=== PATIENT | male | born 1940 | race Caucasian/White ===

== ENCOUNTER 2018-05-27 23:30 | Emergency (ER) | payer MEDICARE ==
[~2018-05-27 23:30] MED LIST: ADV100/50 INH; ADV250/50 INH; ALB17R INH; ALB6.7R INH; GABA-1 PO; LEV75 PO; LOR75 PO; MET800 PO; MON10 PO; MULT-820 PO; OXY10 PO; PER PO; ROPI0.2527 PO; WARF3TAB36 PO; ZOLP-350 PO; [UNRECOGNIZED DRUG - CODE] PO
--- NOTE | 2018-05-27 23:39 | ER Report ---
History and Physical Time Seen By MD: 23:39 HPI/ROS CHIEF COMPLAINT: Anxiety, shortness of breath HISTORY OF PRESENT ILLNESS: Patient is a 78-year-old male here with complaints of shortness of breath while on his CPAP this evening. He came into town as stated in the hotel with his because he has an orthopedic appointment for his right knee with Dr. Liriano 05/28 however he forgot his oxygen causing him to wake up in the middle the night short of breath and in a panic. Patient symptoms have resolved since that time and no longer feels short of breath on room air. He does have a history significant for cardiac disease however is not having chest pain or chest tightness currently. He also has a history of pulmonary embolisms however reports that his symptoms are different today and blames his lack of oxygen for his prior symptoms. Patient is afebrile at time of evaluation, denies shortness breath, chest pain, he is hemodynamically stable. REVIEW OF SYSTEMS: Constitutional: No fever, no chills. Eyes: No discharge. ENT: No sore throat. Cardiovascular: No chest pain, no palpitations. Respiratory: No cough, no shortness of breath currently Gastrointestinal: No abdominal pain, no vomiting. Genitourinary: No hematuria. Musculoskeletal: + Right knee pain and mild edema without erythema Skin: No rashes. Neurological: No headache. Allergies: Coded Allergies: No Known Drug Allergies (Unverified , 05/27/18) Uncoded Allergies: ANIMALS AND PLANTS (Allergy, Mild, SOB, 12/06/07) UNKNOWN FOODS (Allergy, Mild, SOB, 12/06/07) Home Meds Active Scripts Lorazepam (ATIVAN) 1 Mg Tablet, 1 MG PO Q4-6H for 3 Days, #12 Prov:JONAH LAKE DO 05/28/18 Reported Medications Allopurinol (ZYLOPRIM) 300 Mg Tablet, 300 MG PO QDAY, TAB 05/28/18 Gabapentin (GABAPENTIN) 300 Mg Capsule, 300 MG PO TID, CAPSULE 05/28/18 Nitroglycerin (NITROGLYCERIN) 0.4 Mg Tab.subl, 0.4 MG SL Q5MIN Y for CHEST PAIN 05/28/18 Furosemide (FUROSEMIDE) 40 Mg Tablet, 1 TAB PO PRN, TAB 05/28/18 Metoprolol Succinate (METOPROLOL SUCCINATE) 25 Mg Tab.er.24h, 0.5 TAB PO BID, TAB 05/28/18 Fexofenadine Hcl/Pseudoephedr (ROSIBEL-D 24 HOUR TABLET) 1 Each Tabsr, 1 TAB PO QDAY 05/28/18 Prednisone 10 Mg Tab (PREDNISONE 10 MG TAB) 10 Mg Tablet, 0.5 TAB PO QDAY, TAB 05/28/18 Folic Acid (FOLIC ACID) 1 Mg Tablet, 1 MG PO QDAY, TAB 05/28/18 Methotrexate Sodium (METHOTREXATE) 25 Mg/1 Ml Vial, 6 ML IJ 1XWK, VIAL 05/28/18 Diphenhydramine Hcl (BENADRYL) 25 Mg Capsule, 25 MG PO Q6-8H Y for it, CAPSULE 05/28/18 Trazodone Hcl (TRAZODONE HCL) 50 Mg Tablet, 50-100 MG PO QHS 05/28/18 Ropinirole Hcl (ROPINIROLE HCL) 2 Mg Tablet, 4 MG PO QDAY 05/28/18 Warfarin Sodium (WARFARIN SODIUM) 5 Mg Tablet, 4 MG PO sat,sun, TAB 05/28/18 Warfarin Sodium (WARFARIN SODIUM) 5 Mg Tablet, 2 MG PO m,,w,th,f, TAB 05/28/18 Pantoprazole Sodium (PANTOPRAZOLE SODIUM) 40 Mg Tablet.dr, 40 MG PO QDAY, TAB.SR 05/28/18 Albuterol Sulfate (Proventil Hfa) 6.7 Gm Aer.w.adap, 1 - 2 PUFF INH, 0 Refills 04/06/09 Levothyroxine Sodium (Synthroid/Levothroid) 0.075 Mg Tab, 0.075 MG PO QDAY, 0 Refills 04/06/09 Discontinued Reported Medications Oxycodone/Acetaminophen (OXYCODONE/ACETAMINOPHEN 5MG/325 MG) 5 Mg/325 Mg Tab, 1 - 2 TAB PO Q6H Y, #60 0 Refills TAKE 1-2 TABS EVERY 6 HOURS NEEDED FOR PAIN 04/10/09 Multivitamins (Multivitamin) 1 Tab Tablet, 1 TAB PO, 0 Refills 04/06/09 Acetaminophen/Hydrocodone (Lortab 7.5/500) 7.5 Mg/500 Mg Tab, 1 - 2 TAB PO Q6H, 0 Refills 04/06/09 Ropinirole Hcl (Requip) 0.25 Mg Tablet, 0.25 MG PO QDAY, 0 Refills 04/06/09 Gabapentin (Neurontin) 600 Mg Tablet, 600 MG PO TID, 0 Refills 04/06/09 Salmeterol Xinaf/Fluticasone (Advair 250/50 Diskus) 250 Mcg/50 Mcg Inh, 1 PUFF INH QDAY, 0 Refills 1 PUFF 04/06/09 Montelukast Sodium (Singulair) 10 Mg Tab, 10 MG PO QHS 04/06/09 Hx Smoking: Yes (PAST FOR 4 YEARS) Constitutional Vital Sign - Last 24 Hours 05/27/18 23:41 Temp 98.6 Pulse 72 Resp 16 B/P (MAP) 164/89 Pulse Ox 93 O2 Delivery Room Air Physical Exam General Appearance: The patient is alert, has no immediate need for airway protection and no signs of toxicity. No Acute distress Eyes: Pupils equal and round no pallor or injection. ENT, Mouth: Mucous membranes are moist. Respiratory: There are no retractions, lungs are clear to auscultation. Cardiovascular: Regular rate and rhythm. Gastrointestinal: Abdomen is soft and non tender, no masses, bowel sounds normal. Neurological: No focal neurological deficits Skin: Warm and dry, no rashes. Musculoskeletal: Neck is supple non tender. Right knee swelling with edema and tenderness on ROM DIFFERENTIAL DIAGNOSIS: After history and physical exam differential diagnosis was considered for infection, gout, arthritis, lack of supplemental oxygen, panic attack Medical Decision Making Data Points Result Diagram: 05/28/18 0100 05/28/18 0100 Laboratory Hematology Test 05/28/18 01:00 Red Blood Count 5.08 M/uL (4.00-5.60) Mean Corpuscular Volume 98.4 fL (80.0-96.0) Mean Corpuscular Hemoglobin 33.7 pg (26.0-33.0) Mean Corpuscular Hemoglobin Concent 34.2 g/dL (32.0-36.0) Red Cell Distribution Width 15.7 % (11.5-14.5) Mean Platelet Volume 9.1 fL (7.2-11.1) Neutrophils (%) (Auto) 66.4 % (39.4-72.5) Lymphocytes (%) (Auto) 22.3 % (17.6-49.6) Monocytes (%) (Auto) 8.8 % (4.1-12.4) Eosinophils (%) (Auto) 2.1 % (0.4-6.7) Basophils (%) (Auto) 0.4 % (0.3-1.4) Nucleated RBC Relative Count (auto) 0.0 /100WBC Neutrophils # (Auto) 5.4 K/uL (2.0-7.4) Lymphocytes # (Auto) 1.8 K/uL (1.3-3.6) Monocytes # (Auto) 0.7 K/uL (0.3-1.0) Eosinophils # (Auto) 0.2 K/uL (0.0-0.5) Basophils # (Auto) 0.0 K/uL (0.0-0.1) Nucleated RBC Absolute Count (auto) 0.00 K/uL Blood Gas Patient Temperature 98.3 DEGREES Venous Blood pH 7.50 (7.31-7.41) Venous Blood Partial Pressure CO2 30 mmHg Venous Blood Partial Pressure O2 51 mmHg Venous Blood HCO3 24 mmol/L Venous Blood Oxygen Saturation 89 % Venous Blood Base Excess 1 mmol/L Oxygen Liters/Minute Room air Sodium Level 137 mmol/L (137-145) Potassium Level 4.0 mmol/L (3.5-5.0) Chloride Level 102 mmol/L (98-107) Carbon Dioxide Level 27 mmol/L (22-30) Blood Urea Nitrogen 12 mg/dl (9-21) Creatinine 0.80 mg/dl (0.66-1.25) Glomerular Filtration Rate Calc > 60.0 Random Glucose 110 mg/dl (75-110) Calcium Level 9.0 mg/dl (8.4-10.2) Total Bilirubin 0.5 mg/dl (0.2-1.3) Aspartate Amino Transf (AST/SGOT) 31 U/L (0-35) Alanine Aminotransferase (ALT/SGPT) 36 U/L (0-56) Alkaline Phosphatase 58 U/L (0-126) Total Protein 6.1 g/dl (6.3-8.2) Albumin 3.5 g/dl (3.5-5.0) Chemistry Test 05/28/18 01:00 White Blood Count 8.2 k/uL (4.5-11.0) Red Blood Count 5.08 M/uL (4.00-5.60) Hemoglobin 17.1 g/dL (14.0-18.0) Hematocrit 50.0 % (42.0-52.0) Mean Corpuscular Volume 98.4 fL (80.0-96.0) Mean Corpuscular Hemoglobin 33.7 pg (26.0-33.0) Mean Corpuscular Hemoglobin Concent 34.2 g/dL (32.0-36.0) Red Cell Distribution Width 15.7 % (11.5-14.5) Platelet Count 146 K/uL (150-450) Mean Platelet Volume 9.1 fL (7.2-11.1) Neutrophils (%) (Auto) 66.4 % (39.4-72.5) Lymphocytes (%) (Auto) 22.3 % (17.6-49.6) Monocytes (%) (Auto) 8.8 % (4.1-12.4) Eosinophils (%) (Auto) 2.1 % (0.4-6.7) Basophils (%) (Auto) 0.4 % (0.3-1.4) Nucleated RBC Relative Count (auto) 0.0 /100WBC Neutrophils # (Auto) 5.4 K/uL (2.0-7.4) Lymphocytes # (Auto) 1.8 K/uL (1.3-3.6) Monocytes # (Auto) 0.7 K/uL (0.3-1.0) Eosinophils # (Auto) 0.2 K/uL (0.0-0.5) Basophils # (Auto) 0.0 K/uL (0.0-0.1) Nucleated RBC Absolute Count (auto) 0.00 K/uL Blood Gas Patient Temperature 98.3 DEGREES Venous Blood pH 7.50 (7.31-7.41) Venous Blood Partial Pressure CO2 30 mmHg Venous Blood Partial Pressure O2 51 mmHg Venous Blood HCO3 24 mmol/L Venous Blood Oxygen Saturation 89 % Venous Blood Base Excess 1 mmol/L Oxygen Liters/Minute Room air Glomerular Filtration Rate Calc > 60.0 Calcium Level 9.0 mg/dl (8.4-10.2) Total Bilirubin 0.5 mg/dl (0.2-1.3) Aspartate Amino Transf (AST/SGOT) 31 U/L (0-35) Alanine Aminotransferase (ALT/SGPT) 36 U/L (0-56) Alkaline Phosphatase 58 U/L (0-126) Total Protein 6.1 g/dl (6.3-8.2) Albumin 3.5 g/dl (3.5-5.0) EKG/Imaging EKG Interpretation 12 lead EKG: Normal sinus rhythm, rate 63, right bundle branch block, QTC 499 Rhythm: normal sinus rhythm with right bundle branch block [place]: normal QRS: normal ST segments: normal Monitor Interpretation: Normal Sinus Rhythm Imaging CHEST: Indication: Dyspnea. Technique: Frontal and lateral views were obtained. Comparison: 01/03/2011 Skeletal and soft tissue structures: There is evidence of prior cervical spine fusion. There are mild degenerative changes throughout the thoracic spine. No acute skeletal deformity is identified. Heart and mediastinum: Within normal limits. Lung dickinson: Well-expanded. There are diffuse prominent interstitial markings. No segmental infiltrate or consolidation is identified. Pleural spaces: Unremarkable. Impression: No acute process or significant change. ED Course/Re-evaluation ED Course Patient is a 78-year-old male here with complaints of anxiety after waking up on his CPAP without supplemental oxygen. Symptoms have since resolved. Patient is staying in a hotel tonight so he can attend an orthopedic appointment tomorrow for his right knee. Chest x-ray showed no acute findings. Labs were unremarkable. Patient was advised to follow up with PCP in the next several days and to use his oxygen with CPAP for nocturnal use. EKG showed normal sinus rhythm with right bundle branch block, no old studies were available for comparison. Patient voiced understanding regarding plan. Decision to Disposition Date: May 28, 2018 Decision to Disposition Time: 01:41 Depart Departure Latest Vital Signs Vital Signs Date Time Temp Pulse Resp B/P (MAP) Pulse Ox O2 Delivery O2 Flow Rate FiO2 05/27/18 23:41 98.6 72 16 164/89 93 Room Air Impression: Primary Impression: Shortness of breath Additional Impression: Anxiety Condition: Improved Disposition: HOME OR SELF-CARE New Scripts Lorazepam (ATIVAN) 1 Mg Tablet 1 MG PO Q4-6H for 3 Days, #12 Prov: JONAH LAKE DO 05/28/18 Patient Instructions: Dyspnea (ED), Lorazepam (By mouth) Additional Instructions: You may take 1 tablet of Ativan as needed for anxiety every 6-8 hours. Please keep your scheduled appointment with orthopedics. Please return promptly should develop any shortness of breath, difficulty breathing, fevers, chest pain, skin discoloration. Problem Qualifiers JONAH LAKE DO May 27, 2018 23:39
[2018-05-28] MEDS ORDERED: ALLO-119 PO (00:08)
[2018-05-28] MEDS ORDERED: FURO-47 PO (00:08)
[2018-05-28] MEDS ORDERED: PRED-1 PO (00:08)
[2018-05-28] MEDS ORDERED: GABA-549 PO (00:08)
[2018-05-28] MEDS ORDERED: PANT40TA65 PO (00:08)
[2018-05-28] MEDS ORDERED: FOLI-68 PO (00:08)
[2018-05-28] MEDS ORDERED: TRAZ-156 PO (00:08)
[2018-05-28] MEDS ORDERED: WARF5TAB23 PO ×2 (00:08)
[2018-05-28] MEDS ORDERED: DIPH-740 PO (00:08)
[2018-05-28] MEDS ORDERED: METO25TA23 PO (00:08)
[2018-05-28] MEDS ORDERED: FEXO1TAB63 PO (00:08)
[2018-05-28] MEDS ORDERED: NITR0.4T3 SL (00:08)
[2018-05-28] MEDS ORDERED: METH25VI31 IJ (00:08)
[2018-05-28] MEDS ORDERED: ROPI2TAB28 PO (00:08)
--- NOTE | 2018-05-28 00:58 | EKG ---
FACILITY: [facility] PATIENT NAME: SYLVIA NIXON : [id number] MR: [id number] V: [id number] EXAM DATE: ORDERING PHYSICIAN: JONAH LAKE TECHNOLOGIST: Test Reason : Blood Pressure : / mmHG Vent. Rate : 063 BPM Atrial Rate : 063 BPM P-R Int : 168 ms QRS Dur : 136 ms QT Int : 488 ms P-R-T Axes : 024 029 -09 degrees QTc Int : 499 ms Normal sinus rhythm Right bundle branch block T wave abnormality, consider inferior ischemia Abnormal ECG No previous ECGs available Confirmed by TIFFANY TONEY ([id number]) on 05/28/2018 10:19:25 AM Referred By: Confirmed By:TIFFANY TONEY
[2018-05-28 01:05] LABS: PLATELET COUNT, AUTOMATED 146 K/uL (150-450)
[2018-05-28] MEDS ORDERED: LORA-1456 PO (01:43)
--- NOTE | 2018-05-28 02:07 | RADIOLOGY IMAGING REPORT ---
FACILITY: [facility] PATIENT NAME: Eliecer Oliva : 1940 MR: [id number] V: [id number] EXAM DATE: ORDERING PHYSICIAN: JONAH LAKE TECHNOLOGIST: [place] [facility] [place] : 1940 Visit/Account:[id number] Date of Sevice: 05/28/2018 CHEST: Indication: Dyspnea. Technique: Frontal and lateral views were obtained. Comparison: 01/03/2011 Skeletal and soft tissue structures: There is evidence of prior cervical spine fusion. There are mild degenerative changes throughout the thoracic spine. No acute skeletal deformity is identified. Heart and mediastinum: Within normal limits. Lung dickinson: Well-expanded. There are diffuse prominent interstitial markings. No segmental infiltrat e or consolidation is identified. Pleural spaces: Unremarkable. Impression: No acute process or significant change. Report Dictated By: Eulogio Loza MD at 05/28/2018 2:01 AM Report E-Signed By: Eulogio Loza MD at 05/28/2018 2:04 AM WSN:[id number]
[2018-05-28 02:30] VITALS: BP 118/71
== END 2018-05-28 02:41 | disposition home or self-care (01) ==
LOC: ER 23:55
DX: F41.9 Anxiety disorder, unspecified (principal); R06.02 Shortness of breath
CPT/HCPCS: 71046; 82040; 82247; 82310; 82374; 82435; 82565; 82803; 82947; 84075; 84132; 84155; 84295; 84450; 84460; 84520; 85025; 93005; 99284

== ENCOUNTER → 2018-05-28 | Outpatient (CLI) | payer MEDICARE ==
[~2018-05-28] MED LIST changes: +ALLO-119 PO; +DIPH-740 PO; +FEXO1TAB63 PO; +FOLI-68 PO; +FURO-47 PO; +GABA-549 PO; +LORA-1456 PO; +METH25VI31 IJ; +METO25TA23 PO; +NITR0.4T3 SL; +PANT40TA65 PO; +PRED-1 PO; +ROPI2TAB28 PO; +TRAZ-156 PO; +WARF5TAB23 PO
--- NOTE | 2018-05-28 16:16 | RADIOLOGY IMAGING REPORT ---
FACILITY: [facility] - [place] PATIENT NAME: Eliecer Oliva : 1940 MR: [id number] V: [id number] EXAM DATE: ORDERING PHYSICIAN: DARRYL VILCHIS TECHNOLOGIST: Location: [facility] Patient: Eliecer Oliva : 1940 Visit/Account:[id number] Date of Sevice: 05/28/2018 VENOUS DOPP LOW RIGHT EXTREMIT Indication: Right leg pain and swelling. Comparison: August 04, 2016 right leg ultrasound. Procedure: There has been satisfactory grayscale as well as color flow and Doppler waveform analysis of the deep vessels of the right lower extremity. Findings: The common femoral, profunda femoral, superficial femoral, popliteal and infrapopliteal ves sels so far as visualized are compressible with grayscale imaging. All these vessels show flow with c olor Doppler imaging. Following calf compression there is normal directional augmentation of the Dopp ler waveform. The right greater saphenous vein is compressible with grayscale imaging and color flow analysis shows normal flow. The Doppler waveform shows normal direction of flow. IMPRESSION: No findings of deep vein thrombosis in the right lower extremity. Report Dictated By: Gomez Cornell MD at 05/28/2018 4:12 PM Report E-Signed By: Gomez Cornell MD at 05/28/2018 4:13 PM WSN:[id number]
== END ==
LOC: US 14:54
PROVIDERS: ATTEND Orthopaedic Surgery
DX: M79.89 Other specified soft tissue disorders (principal); Z86.711 Personal history of pulmonary embolism

== ENCOUNTER 2018-11-09 01:29 | Inpatient (IN) | payer MEDICARE ==
--- NOTE | 2018-11-08 12:18 | LEVENE H&P ---
DATE OF ADMISSION: November 09, 2018 IDENTIFICATION/CHIEF COMPLAINT Eliecer is a 78-year-old gentleman with chief complaint of right shoulder pain. HISTORY OF PRESENT ILLNESS Patient has had a longstanding history of rotator cuff tear in his shoulder which has been managed conservatively. This has gone on to become progressively painful and debilitating to the point he is unable to effectively elevate the arm. MRI indicates a massive, probably irreparable and atrophied tear of his cuff. Surgery is indicated to relieve symptoms after failure of nonoperative measures. PAST MEDICAL HISTORY 1. History of coronary artery disease. 2. History of [place]. 3. History of right bundle branch block. 4. Hypertension. 5. Previous cardiac stent placement. 6. Sleep apnea, managed with CPAP. 7. Reactive airway disease. 8. Nighttime oxygen use. PAST SURGICAL HISTORY 1. Tonsillectomy. 2. Knee surgery on multiple occasions. 3. Left knee replacement. 4. Cervical fusion, four levels. ALLERGIES No known drug allergies. LATEX allergy. CURRENT MEDICATIONS 1. Elavil 75 mg p.o. at bedtime. 2. Fosamax 75 mg p.o. every week. 3. Ventolin inhaler as needed. 4. Pantoprazole 40 mg p.o. every day. 5. Levothyroxine 75 micrograms p.o. every day. 6. Coumadin 2 mg five days a week, 4 mg two times a week. 7. Ropinirole 2 mg p.o. at bedtime. 8. Methotrexate injection 6 mg once a week. 9. Prednisone 5 mg p.o. every day. 10. Metoprolol 25 mg one-half tablet every day. 11. Aspirin 81 mg p.o. every day. 12. Allopurinol 300 mg p.o. every day. 13. Gabapentin 300 mg p.o. every day. 14. Xyzal one tablet p.o. every day. FAMILY HISTORY Notable for sister with breast cancer and a grandmother with stroke. SOCIAL HISTORY Negative for smoking tobacco until 1962; he has quit since. He denies alcohol or drug abuse. REVIEW OF SYSTEMS Notable for pulmonary embolus, thyroid disease, acid reflux disease, polymyositis. PHYSICAL EXAMINATION GENERAL: This is a well-developed, well-nourished male who appears stated age. HEENT: Normocephalic, atraumatic. NECK: Supple. LUNGS: Clear. HEART: Regular. ABDOMEN: Soft. ORTHOPEDIC EXAMINATION Eliecer has no meaningful active elevation of his shoulder. He has positive external rotation lag. He is weak in forward elevation, abduction, adduction, external rotation, internal rotation. Power is reasonable. He is tender at the anterior and posterior joint line over the biceps groove and greater tuberosity. 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 PLAN Per patient's request, we will proceed with surgical intervention. This will consist of reverse total shoulder arthroplasty, concomitant long-head biceps tenodesis. The nature of the procedure, the risks, benefits, the anticipated rehabilitative course were reviewed. Risks include, but are not limited to, , major medical or anesthetic complication, infection, neurovascular injury, blood transfusion, stiffness, scarring, fracture, tendon rupture, instability, implant loosening, migration or failure, persistent or recurrent pain or symptoms, need for additional surgery and other unforeseen. He understands and wishes to proceed. A signed permit is placed in the chart. No guarantees are given or implied. OCTAVIO
[2018-11-08 15:25] LABS: INR 1.05
[~2018-11-09] VITALS: Ht 170.2 cm; Wt 97.1 kg
[~2018-11-09 01:29] MED LIST changes: +ASPI81TA94 PO; -TRAZ-156 PO; +TRAZ50TA34 PO
[2018-11-09] MEDS ORDERED: LEVO5TAB28 PO (11:37)
[2018-11-09 12:41] VITALS: BP 151/88
[2018-11-09] MEDS ORDERED: MIDAZOLAM 2 MG/2 ML VIAL IVP PRN (12:45)
[2018-11-09] MEDS ORDERED: LIDOCAINE/SOD BICARB 8.4% SYR ID ONE (12:45)
[2018-11-09] MEDS ORDERED: HYDROCORTISONE 100 MG/2 ML IVP ONE (12:45)
[2018-11-09] MEDS ORDERED: NORMOSOL R SOLN(*) 1000 ML BAG 1,000 ML IV PRN ×2 (12:45→18:30)
[2018-11-09] MEDS ORDERED: ACETAMINOPHEN 500 MG TAB PO ONE (12:45)
[2018-11-09] MEDS ORDERED: PREGABALIN 75 MG CAPSULE PO ONE (12:45)
[2018-11-09] MEDS ORDERED: ceFAZolin(*) 2GM/D5W 50ML 50 ML IVPB ONE (12:45)
[2018-11-09] MEDS ORDERED: CELECOXIB 200 MG CAP PO ONE (12:45)
[2018-11-09] MEDS ORDERED: TRANEXAMIC AC 1000 MG/10ML SDV 1,000 MG in DEXTROSE 5% 50 ML BAG 50 ML IV ONE ×2 (13:00→14:00)
[2018-11-09] MEDS ORDERED: ROPIVACAINE/EPI/CLONIDINE/KET 50 ML SYRINGE INJ ONE ×2 (13:00→14:00)
[2018-11-09] MEDS ORDERED: KETAMINE HCL 200 MG/20 ML MDV ONE (13:58)
[2018-11-09] MEDS ORDERED: fentaNYL CITR 100 MCG/2 ML AMP ONE (13:58)
[2018-11-09] MEDS ORDERED: ONDANSETRON 4 MG/2 ML VIAL ONE (13:59)
[2018-11-09] MEDS ORDERED: DEXAMETHASONE SOD PHOS 10MG/ML ONE (13:59)
[2018-11-09] MEDS ORDERED: PROPOFOL EMUL(*) 10MG/ML 20 ML 20 ML ONE ×2 (13:59→14:00)
[2018-11-09] MEDS ORDERED: LIDOCAINE MPF 1% 5 ML VIAL ONE (13:59)
[2018-11-09] MEDS ORDERED: ROCURONIUM BROM 10 MG/ML 10 ML ONE (14:48)
[2018-11-09] MEDS ORDERED: HYDROGEN PEROXID 3% 473 ML BTL TP ONE (15:43)
[2018-11-09] MEDS ORDERED: LACTATED RINGER 3000 ML BAG IR ONE (16:09)
[2018-11-09] MEDS ORDERED: NS 0.9% IRRIGATION 1000ML PLCT IR ONE (16:09)
[2018-11-09] MEDS ORDERED: SUGAMMADEX SOD 200 MG/2 ML SDV ONE (17:37)
[2018-11-09] MEDS ORDERED: MAGNESIUM HYDROXIDE* 30ML UDCP PO PRN (18:30)
[2018-11-09] MEDS ORDERED: diphenhydrAMINE 25 MG CAP PO PRN (18:30)
[2018-11-09] MEDS ORDERED: BENZOCAINE/MENTHOL 1 EACH LOZG PO PRN (18:30)
[2018-11-09] MEDS ORDERED: FLUSH 10 ML SYR IVP PRN (18:30)
[2018-11-09] MEDS ORDERED: APAP/HYDROCODONE 325/7.5 TAB PO PRN (18:30)
[2018-11-09] MEDS ORDERED: PROMETHAZINE 25 MG/ML 1 ML AMP IVP PRN (18:30)
[2018-11-09] MEDS ORDERED: diphenhydrAMINE 50 MG/ML VIAL IVP PRN (18:30)
[2018-11-09] MEDS ORDERED: ZOLPIDEM TARTRATE 5 MG TAB PO PRN (18:30)
[2018-11-09] MEDS ORDERED: BISACODYL 10 MG SUPP PR PRN (18:30)
[2018-11-09] MEDS ORDERED: ACETAMINOPHEN 325 MG TAB PO PRN (18:30)
[2018-11-09] MEDS ORDERED: DIAZEPAM 5 MG TAB PO PRN (18:30)
[2018-11-09] MEDS ORDERED: NORMOSOL R SOLN(*) 1000 ML BAG 1,000 ML IV ONE (18:37)
[2018-11-09 19:40] VITALS: BP 114/85
[2018-11-09] MEDS ORDERED: WARF2TAB13 PO (19:51)
[2018-11-09] MEDS ORDERED: METOPROLOL SUCC XL 25 MG TABCR PO SCH (21:00)
[2018-11-09] MEDS ORDERED: WARFARIN SOD 2 MG TAB PO ONE (21:00)
[2018-11-09] MEDS ORDERED: ALBUTEROL 2.5 MG/3 ML NEB NEB PRN (21:00)
[2018-11-09] MEDS ORDERED: traZODone HCL 50 MG TAB PO SCH (21:00)
[2018-11-09] MEDS ORDERED: ENOXAPARIN 100 MG/ML SYR SC SCH (21:00)
--- NOTE | 2018-11-09 21:11 | RADIOLOGY IMAGING REPORT ---
FACILITY: [facility] - [place] PATIENT NAME: Eliecer Oliva : 1940 MR: [id number] V: [id number] EXAM DATE: ORDERING PHYSICIAN: DARRYL VILCHIS TECHNOLOGIST: Location: [facility] - [place] Patient: Eliecer Oliva : 1940 Visit/Account:[id number] Date of Sevice: 11/09/2018 SHOULDER 1 VIEW RIGHT HISTORY: Postop RIGHT reversed total shoulder arthroplasty COMPARISON: None. FINDINGS: AP view of the right shoulder demonstrates a prosthesis of the glenoid and proximal humerus in good a lignment. No periprosthetic lucency or fracture is seen. The acromioclavicular joint is unremarkable. IMPRESSION: Satisfactory postoperative appearance of the right glenohumeral prosthesis. Report Dictated By: Chica Richey MD at 11/09/2018 9:06 PM Report E-Signed By: Chica Richey MD at 11/09/2018 9:07 PM WSN:[id number]
--- NOTE | 2018-11-09 21:48 | OPERATIVE REPORT 1 ---
EVENT DATE: November 09, 2018 SURGEON: Kanu Mohan MD ANESTHESIOLOGIST: Dereck Tobar MD ANESTHESIA: General plus scalene. [employer] MAINTENANCE CONSULTANT: Reyes Hong PA-C PREOPERATIVE DIAGNOSES 1. 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 2. Disease of the long head of the biceps. POSTOPERATIVE DIAGNOSES 1. 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 2. Disease of the long head of the biceps. PROCEDURES PERFORMED 1. Right reverse total shoulder arthroplasty. 2. Long head biceps tenodesis. ESTIMATED BLOOD LOSS 200 mL DRAINS None. SPECIMENS None. COMPLICATIONS None apparent. IMPLANTS USED [employer] reverse shoulder arthroplasty with a size 16 modular humeral stem, a 36 diameter 4 mm thickness humeral cup with an 8 mm 36 humeral insert, X3 polyethylene, a metaglene with four peripheral locking screws, a 2 mm eccentric 36 mm glenosphere, the 28 mm metaglene or glenoid baseplate, and a 6.5 x 32 mm center screw. INDICATIONS Eliecer has refractory pain and dysfunction in his shoulder. He has massive atrophied cuff tear and some early degenerative changes. Surgery is indicated to relieve his symptoms after failure of all nonoperative measures. DESCRIPTION OF PROCEDURE Patient is taken to the operating room and placed supine on the operating table. Scalene block is administered by the anesthesiologist. General anesthesia is induced. Antibiotics and TXA are administered IV. Patient is positioned in the beach chair position with his neck secured in the neutral position. Right shoulder girdle and upper extremity are prepped and draped in the usual sterile fashion for shoulder arthroplasty. A curvilinear incision is made over the deltopectoral interval, carried down through the skin and subcutaneous tissue. The cephalic vein is identified, taken laterally with the deltoid. The interval is developed bluntly. The clavipectoral fascia is released from the lateral aspect of the conjoined tendon, and a blunt retractor is placed beneath the conjoined tendon. Axillary neurovascular bundle is identified, and a blunt Hohmann is used to protect this throughout the case. There is a massive posterosuperior cuff tear which is irreparable as expected. The subscapularis is torn at its upper border, full thickness, and somewhat delaminated. The anterior humeral circumflex vessels are ligated. Biceps is located after releasing a bit of the upper border of the pectoralis major tendon and is tenodesed to the pectoralis stump with #2 Ethibond [id number] sutures. The biceps is then clipped proximally and followed up into the joint to identify the path into the rotator interval. Rotator interval is released, and the biceps is excised. The subscapularis is peeled off due to the upper border full-thickness tear and is tagged with #2 Ethibond for later anatomic reattachment. The capsule is progressively released subperiosteally off the inferior aspect of the humerus. This is extended and externally rotated and dislocated out of the joint. A Darrach retractor is used to protect the glenoid and the soft tissues, and the marking template is used to chelly 135-degree neck angle cut at the anatomic neck height. This is performed in about 30 degrees of retroversion, aiming for the bare area posteriorly to replicate the patient's normal retroversion. Humeral head is removed and saved for later grafting. The humerus is then levered posteriorly, and the labrum is excised circumferentially. Anteriorly, the subscapularis is released and freed off the glenoid. The anterior glenoid retractor is placed. After clearly defining the bottom of the bony glenoid, the appropriate jig is used to place the center screw so that the bottom of the metaglene will be just at the bottom of the bony glenoid. The 36 mm reamer is selected, and reaming is achieved just enough to achieve a concentric back for the metaglene. The metaglene is inserted with a center screw and seats firmly down on bone. Peripheral holding devices are removed, and the four peripheral screws are placed, first the superior, then the inferior, and then the anterior and posterior good locking screws are obtained in satisfactory bone in all these positions. The metaglene is firmly seated. It is copiously cleaned and dried and peripheral soft tissues removed. A 36, 2 mm eccentricity glenosphere is selected with the eccentricity down inferiorly to minimize risk of notching, and this is impacted onto the Pavon taper and seats nicely. The humerus is then delivered out, and the superior hole is created at the upper lateral portion of the cup posterior to the biceps. Cylindrical reaming is performed up to 16 where nice endosteal contact is obtained. The first broach is then inserted. It is a 14 following the version of the cut at 30 degrees retroversion. The 16 broach has nice solid stability, and trial reductions are performed off this with various cup inserts. After achieving optimal soft tissue tension with the 8 mm humeral insert, the entire construct of the stem, humeral cup, and insert are assembled on the back table. A bit of the bone graft from the head is placed in the medial aspect of the calcar to increase bone density and fixation, and this is impacted into position. It is carefully reduced, and soft tissue tension is assessed again. Good denominational of stability and soft tissue tension are achievable with nice range of motion, allowing the hand to be brought to the contralateral shoulder, the back of the head, and fully up over head. With scarecrow test, it can be internally rotated 75 and then 90-degree abducted position, and the subscapularis can be reapproximated anatomically at 50 degrees of external rotation. Drill holes are created through the lesser tuberosity which is then rasped, and these are brought out to the biceps groove. After passing the sutures from the previously placed Ethibond, these are cross-tied to each other to effect the subscapularis repair. This is then brought up and reinforced with additional [id number] #2 Ethibond sutures to the soft tissue on the other side of the biceps groove. Wound is copiously lavaged. Meticulous hemostasis is assured. Deltopectoral interval is allowed to fold back together. Derm is closed with 3-0 Vicryl, skin with 4-0 Monocryl, followed by a Dermabond mesh Prineo dressing. A dry, sterile dressing was applied over this, and the patient was placed in an Ultra-Sling. He is awakened from anesthesia and taken to the recovery room in stable condition having tolerated the procedure well. PLAN Plan is for standard reverse total shoulder arthroplasty rehab protocol, active assist forward elevation above 90 degrees for the first four weeks. External rotation not to exceed 40 for the first month. No extension behind the plane of the trunk. No internal rotation behind the back. MTDD
--- NOTE | 2018-11-09 23:19 | Hospitalist Consultation ---
History of Present Illness Requesting Physician Dr Mohan Reason for Consult management of medical comorbidities Chief Complaint R shoulder DJD History of Present Illness 78M with PMHx of CAD, restless leg syndrome, hypothyroid, polymyositis, JANY, Hx of PE. Admitted after R shoulder replacement and RC tear repair. Operation without complications per review of operative note. Consult was requested to manage medical comorbidities. Denies any concern other than feeling a little confused still after anesthesia. History Problems: (1) JANY (obstructive sleep apnea) (2) Hypothyroid (3) CAD (coronary artery disease) (4) DJD (degenerative joint disease) Home Meds Reported Medications Warfarin Sodium (WARFARIN SODIUM) 2 Mg Tablet, 2 MG PO QDAY, TAB 11/09/18 Levocetirizine (XYZAL) 5 Mg Tab, 5 MG PO, TAB 11/09/18 Aspirin (ASPIRIN) 81 Mg Tab.chew, 81 MG PO QDAY, TAB.CHEW 11/02/18 Allopurinol (ZYLOPRIM) 300 Mg Tablet, 300 MG PO QDAY, TAB 05/28/18 Nitroglycerin (NITROGLYCERIN) 0.4 Mg Tab.subl, 0.4 MG SL Q5MIN PRN for CHEST PAIN 05/28/18 Furosemide (FUROSEMIDE) 40 Mg Tablet, 1 TAB PO PRN, TAB 05/28/18 Metoprolol Succinate (METOPROLOL SUCCINATE) 25 Mg Tab.er.24h, 0.5 TAB PO BID, TAB 05/28/18 Prednisone 10 Mg Tab (PREDNISONE 10 MG TAB) 10 Mg Tablet, 0.5 TAB PO QDAY, TAB 05/28/18 Folic Acid (FOLIC ACID) 1 Mg Tablet, 1 MG PO QDAY, TAB 05/28/18 Methotrexate Sodium (METHOTREXATE) 25 Mg/1 Ml Vial, 6 ML IJ 1XWK, VIAL 05/28/18 Trazodone Hcl (TRAZODONE HCL) 50 Mg Tablet, 1.5 TAB PO QHS 05/28/18 Ropinirole Hcl (ROPINIROLE HCL) 2 Mg Tablet, 2 TAB PO QDAY TAKES EACH TAB 1 HOUR APART, CAUSES NAUSEA IF NOT TAKEN 1 HOUR APART. 05/28/18 Pantoprazole Sodium (PANTOPRAZOLE SODIUM) 40 Mg Tablet.dr, 40 MG PO QDAY, TAB.SR 05/28/18 Albuterol Sulfate (Proventil Hfa) 6.7 Gm Aer.w.adap, 1 - 2 PUFF INH, 0 Refills 04/06/09 Levothyroxine Sodium (Synthroid/Levothroid) 0.075 Mg Tab, 0.075 MG PO QDAY, 0 Refills 04/06/09 Discontinued Reported Medications Gabapentin (GABAPENTIN) 300 Mg Capsule, 300 MG PO TID, CAPSULE 05/28/18 Diphenhydramine Hcl (BENADRYL) 25 Mg Capsule, 25 MG PO Q6-8H PRN for it, CAPSULE 05/28/18 Warfarin Sodium (WARFARIN SODIUM) 5 Mg Tablet, 4 MG PO sat,sun, TAB 05/28/18 Warfarin Sodium (WARFARIN SODIUM) 5 Mg Tablet, 2 MG PO DAILY, TAB 05/28/18 Fexofenadine Hcl/Pseudoephedr (ROSIBEL-D 24 HOUR TABLET) 1 Each Tabsr, 1 TAB PO QDAY 05/28/18 Discontinued Scripts Lorazepam (ATIVAN) 1 Mg Tablet, 1 MG PO Q4-6H for 3 Days, #12 Prov:JONAH LAKE DO 05/28/18 Allergies: Coded Allergies: No Known Drug Allergies (Unverified , 11/02/18) Uncoded Allergies: ANIMALS AND PLANTS (Allergy, Mild, SOB, 12/06/07) UNKNOWN FOODS (Allergy, Mild, SOB, 12/06/07) Hx Smoking: Yes Smoking Status: Former Smoker When Quit Tobacco?: 1961 Caffeine Intake: Coffee Caffeine/Cups Per Day: 4 CUPS OF COFFEE Hx Alcohol Use: No When Quit Alcohol?: 2010 Hx Substance Use Disorder: No Review of Systems All Systems Reviewed/Normal: Yes, Except as Noted Neurological: Confusion (mild post anesthesia) Cardiovascular: No Chest Pain Respiratory: No Shortness of Breath Gastrointestinal: No Nausea, No Vomiting Musculoskeletal: No Pain Exam Vital Signs Vital Signs Date Time Temp Pulse Resp B/P (MAP) Pulse Ox O2 Delivery O2 Flow Rate FiO2 11/09/18 19:40 82 24 92 11/09/18 19:40 98.6 114/85 (95) Nasal Cannula 3.0 General Appearance: Alert, Awake, No Acute Distress, Afebrile Neuro: No Gross deficits Eyes: PERRLA Cardiovascular: Normal Rhythm & Peripheral Pulses Respiratory: No Respiratory Distress GI: Abd Soft and Non-Tender Musculoskeletal: No Weakness/Pain (R shoulder in immobilizer) Extremities: Soft and Non Tender, Warm, Pulses, Perfused; No Edema Integumentary: Skin Intact without Lesion / Mass Assessment and Plan Problems: (1) History of pulmonary embolism Assessment & Plan: On chronic anticoagulation with warfarin, will resume in am. Plan for bridging with therapeutic Lovenox starting in am. (2) CAD (coronary artery disease) Assessment & Plan: Stable, stent 2015. Continue chronic ASA 81mg. (3) DJD (degenerative joint disease) Assessment & Plan: Post R shoulder replacement and RC repair. Per primary. (4) Hypothyroid Assessment & Plan: Continue chronic levothyroxine. (5) Polymyositis Assessment & Plan: On chronic prednisone and methotrexate, plan to hold methotrexate while recovering. May resume prednisone on discharge. (6) JANY (obstructive sleep apnea) Venous Thromboembolism Antithrombotics Is Pt On Any Antithrombotics?: Yes Exam Sepsis Risk: No Definite Risk JENSEN PAPA JIMÉNEZ DO Nov 09, 2018 23:19
[2018-11-10] MEDS: ceFAZolin(*) 1 GM VIAL 1 GM in NS(*) 0.9% 100 ML ADDVANT BAG 100 ML IVPB SCH ×2 (00:09→08:40)
[2018-11-10 00:12] VITALS: BP 101/62
[2018-11-10] MEDS ORDERED: LEVOTHYROXINE SOD 0.075 MG TAB PO SCH (06:00)
[2018-11-10 07:13] VITALS: BP 118/79
[2018-11-10] MEDS ORDERED: CELECOXIB 200 MG CAP PO SCH (08:00)
[2018-11-10] MEDS ORDERED: HYDR-389 PO (08:46)
[2018-11-10] MEDS ORDERED: predniSONE 20 MG TAB PO ONE (09:00)
[2018-11-10] MEDS ORDERED: ALLOPURINOL 300 MG TAB PO SCH (09:00)
[2018-11-10] MEDS ORDERED: ENOXAPARIN 100 MG/ML SYR SC SCH (09:00)
[2018-11-10] MEDS ORDERED: ASPIRIN 81 MG CHEW PO SCH (09:00)
[2018-11-10] MEDS ORDERED: METOPROLOL SUCC XL 25 MG TABCR PO SCH (09:00)
[2018-11-10] MEDS ORDERED: PANTOPRAZOLE SOD 40 MG TABEC PO SCH (09:00)
[2018-11-10] MEDS ORDERED: ENOX40DI8 SQ (09:32)
[2018-11-10] MEDS ORDERED: ENOXAPARIN 40 MG/0.4ML SYR SC ONE (09:45)
--- NOTE | 2018-11-10 09:53 | Hospitalist Progress Note ---
Subjective Progress Notes Subjective He was admitted after shoulder replacement. He has no complaints this morning. He had no acute events overnight. He would like to go home today. Patient Complains of: Cardiovascular: No: Chest Pain Respiratory: No: Shortness of Breath Physical Exam Vital Signs Date Time Temp Pulse Resp B/P (MAP) Pulse Ox O2 Delivery O2 Flow Rate FiO2 11/10/18 08:53 90 Nasal Cannula 1.0 11/10/18 07:13 98.5 74 16 118/79 (92) Intake and Output 11/10/18 07:00 Intake Total 4310 ml Output Total 1175 ml Balance 3135 ml Intake Oral 960 ml IV Total 1650 ml Other 1700 ml Output Urine Total 975 ml Estimated Blood Loss 200 ml # Voids 3 General Appearance: Alert, Awake, No Acute Distress, Afebrile Neuro: No Gross deficits Cardiovascular: Regular Rate and Rhythm Respiratory: No Respiratory Distress, Clear to Auscultation Extremities: Warm, Perfused; No Edema Psych: Alert & Oriented X3, Appropriate Mood & Affect Assessment and Plan Problems: (1) DJD (degenerative joint disease) Status: Acute Assessment & Plan: Post R shoulder replacement and RC repair. Per primary. (2) History of pulmonary embolism Assessment & Plan: On chronic anticoagulation with warfarin, resumed last night. Plan for bridging with therapeutic Lovenox starting in am. Spoke with patient in detail regarding Lovenox dose. I recommended the patient be fully anticoagulated with Lovenox 100mg BID, however, he states that he will follow the plan of Dr. Ji Souza in [place]. He reports he already gave him Lovenox 40mg to give once daily prior to surgery, which he will continue for three more days. I have placed a call to Dr. Souza, and have left a message to recommend higher dosing with patient's high risk of PE after surgery. I wrote for patient to have INR checked on Thursday, he will have Dr. Souza manage INR post-operatively. (3) CAD (coronary artery disease) Assessment & Plan: Stable, stent 2015. Continue chronic ASA 81mg. (4) Hypothyroid Assessment & Plan: Continue chronic levothyroxine. (5) Polymyositis Assessment & Plan: On chronic prednisone and methotrexate, plan to hold methotrexate while recovering for two weeks. May resume prednisone on discharge. Will increase Prednisone to 20mg today, 10mg tomorrow, then resume usual 5mg. (6) JANY (obstructive sleep apnea) Copies to: SIMIN SOUZA MD ; Exam Sepsis Risk: No Definite Risk Problem Qualifiers (1) DJD (degenerative joint disease): Osteoarthritis location: shoulder Osteoarthritis type: unspecified Laterality: right Qualified Codes: M19.011 - Primary osteoarthritis, right shoulder ELIZA WOOD [facility] Nov 10, 2018 09:53
[2018-11-10 11:00] VITALS: Ht 170.2 cm; Wt 97.1 kg
[2018-11-10] MEDS ORDERED: PREGABALIN 75 MG CAPSULE PO ONE (11:30)
--- NOTE | 2018-11-10 14:35 | Miscellaneous Provider Note ---
Miscellaneous Provider Note Note Dr. Souza returned call, he agrees with plan to increase Lovenox to 100mg BID. Rx was written for patient, but insurance would not approve at this dose. So gave rx for 1.5mg/kg for once daily injection (150mg injection once daily for five days). Patient will get INR checked on Thursday. ELIZA WOOD Nov 10, 2018 14:35
== END 2018-11-10 13:20 | disposition home or self-care (01) | DRG 483 ==
LOC: OR 01:29 → OBSVTOIN 19:40 → MED 19:40
PROVIDERS: ADMIT Orthopaedic Surgery; ATTEND Orthopaedic Surgery
PROC: 0RRJ00Z Replacement of Right Shoulder Joint with Reverse Ball and Socket Synthetic Substitute, Open Approach (ICD-10-PCS; principal; 2018-11-09 15:12)
DX: M19.011 Primary osteoarthritis, right shoulder (principal); M33.20 Polymyositis, organ involvement unspecified; M75.121 Complete rotator cuff tear or rupture of right shoulder, not specified as traumatic; I25.10 Atherosclerotic heart disease of native coronary artery without angina pectoris; G47.33 Obstructive sleep apnea (adult) (pediatric); I10 Essential (primary) hypertension; R29.818 Other symptoms and signs involving the nervous system; I45.10 Unspecified right bundle-branch block; J45.909 Unspecified asthma, uncomplicated; E03.9 Hypothyroidism, unspecified; G25.81 Restless legs syndrome; Z96.652 Presence of left artificial knee joint; I25.2 Old myocardial infarction; Z95.5 Presence of coronary angioplasty implant and graft; Z99.81 Dependence on supplemental oxygen; Z98.1 Arthrodesis status; Z87.891 Personal history of nicotine dependence; Z79.01 Long term (current) use of anticoagulants
CPT/HCPCS: 36415; 76942; 85610; 86850; 86900; 86901; 97165; A4565; C1713; C1776; J0690; J1100; J1650; J1720; J2001; J2250; J2405; J2704; J3010; J3490; J7050; J7060; J7512; L3670